=== PATIENT | female | born 1990 | race Caucasian/White ===

== ENCOUNTER → 2016-06-25 | Outpatient (CLI) | payer OTHER ==
[~2016-06-25] MED LIST: ACET50TA PO; COLA100C3 PO; IBUP80TA PO
[2016-06-25 19:22] LABS: BASO % 0.5 % (0.0-1.0); EOS # 0.2 K/mm3 (0.0-0.50); EOS % 1.9 % (0.0-3.0); LARGE UNSTAINED CELL # 0.1 K/mm3 (0.0-0.4); LARGE UNSTAINED CELL % 1.2 % (0.0-4.0); LYMPH # 1.4 K/mm3 (1.5-6.5); LYMPH % 15.7 % (24.0-44.0); MEAN CORPUSCULAR HEMOGLOBIN 29.1 pg (27.0-33.0); MEAN CORPUSCULAR HGB CONC 34.8 g/dl (32.0-36.5); MEAN CORPUSCULAR VOLUME 83.8 fl (80.0-96.0); MONO # 0.4 K/mm3 (0.0-0.8); MONO % 3.9 % (0.0-5.0); NEUTROPHILS # 6.9 K/mm3 (1.8-7.7); NEUTROPHILS % 76.7 % (36.0-66.0); PLATELET COUNT, AUTOMATED 357 k/mm3 (150-450); RED CELL DISTRIBUTION WIDTH 12.5 % (11.5-14.5); WHITE BLOOD COUNT 8.9 K/mm3 (4.0-10.0)
[2016-06-26 12:32] LABS: HBsAg Prenatal NEGATIVE (NEGATIVE)
== END ==
LOC: M SMT 14:19
PROVIDERS: ATTEND Specialist
DX: Z34.81 Encounter for supervision of other normal pregnancy, first trimester (principal)

== ENCOUNTER → 2016-09-22 | Outpatient (CLI) | payer OTHER ==
[~2016-09-22] MED LIST changes: -COLA100C3 PO; +COLA100C5 PO
--- NOTE | 2016-09-23 05:38 | REP ---
Clinical: Anatomical evaluation. Comparison: None . Findings: Examination demonstrates a single live intrauterine in breech presentation. motion is identified by technologist. Placenta is noted fundal and grade zero without evidence for placenta previa or abruption. Amniotic fluid volume is normal. Cervix measures 4.9 cm in length and appears closed. No evidence for nuchal cord. Gestational age by LMP 20 weeks 2 days with KEYON 02/07/2017 . Gestational age by current measurements 20 weeks 1 day with KEYON 02/08/2017 . FHR equals 149 beats per minute. BPD 4.6 cm 19 weeks 6 days HC 17.1 cm 19 weeks 5 days AC 15.2 20 weeks 3 days FL 3.3 20 weeks 3 days HL 3.2 cm 20 weeks 4 day HC/AC ratio 1.12 Estimated weight 348 grams ( 48th percentile). Anatomical assessment demonstrates normal structures including cranium, choroid plexus, cavum, cerebellum/posterior fossa, lungs, diaphragm, stomach, cord insertion/three-vessel cord, kidneys/bladder, and lower extremities. Limited evaluation of the facial features, heart/ventricular outflow tracts, spine and upper extremities. Impression: Single live intrauterine in breech presentation demonstrating appropriate interval growth. Anatomical limitations as described above may warrant reevaluation and follow-up. No gross abnormality identified. Signed by West Loredo MD 09/23/2016 05:30 A
== END ==
LOC: M RAD 07:37
PROVIDERS: ATTEND Obstetrics & Gynecology
DX: Z36 Encounter for antenatal screening of mother (principal); Z3A.20 20 weeks gestation of pregnancy

== ENCOUNTER → 2016-10-05 | Outpatient (CLI) | payer OTHER ==
--- NOTE | 2016-10-05 16:02 | REP ---
Obstetric ultrasound for anatomy: There is a single intrauterine gestation in a transverse lie with the head to the maternal left. There is movement and cardiac activity. heart rate is 163 beats per minute. The placenta is posterior. There is no placenta previa or abruptio. Placenta demonstrates grade 1 maturity. The amniotic fluid volume subjectively is normal. The cervix is 4.9 cm in length. Maternal adnexa and cul-de-sac are unremarkable. By the ultrasound today gestational age is 22 weeks 2 days with an KEYON of 02/06/2017. Gestational age by the first ultrasound is 22 weeks 0 days and by LMP 22 weeks 1 day. weight is 478 grams (1 pound, 0 ounces). This is the 46th percentile for 22 weeks 1 day. The following anatomic structures are identified and are unremarkable: Intracranial lateral ventricles, choroid plexus, cranium, cavum septum pellucidum, cerebellum, cisterna magna, facial profile, lungs, four-chamber heart, cardiac right and left ventricular outflow tracts, diaphragm, stomach, cord insertion, three-vessel cord, bladder and upper lower extremities. On the study today the kidneys could not be optimally demonstrated but were adequately demonstrated on the prior study of 09/22/2016 and was unremarkable. On the study today the spine cannot be optimally demonstrated but was adequately demonstrated on the prior study of 09/22/2016 and was unremarkable. On the prior study the facial profile, four-chamber view of the heart and cardiac right and left ventricular outflow tracts were not optimally demonstrated but are adequately demonstrated today and are unremarkable. No anomalies are identified. Signed by Ryan Lynn MD 10/05/2016 03:54 P
== END ==
LOC: M RAD 14:34
PROVIDERS: ATTEND Advanced Practice Midwife
DX: Z36 Encounter for antenatal screening of mother (principal); Z3A.22 22 weeks gestation of pregnancy

== ENCOUNTER → 2016-11-06 | Outpatient (CLI) | payer OTHER ==
[2016-11-06 18:39] LABS: MEAN CORPUSCULAR HEMOGLOBIN 28.8 pg (27.0-33.0); MEAN CORPUSCULAR HGB CONC 33.5 g/dl (32.0-36.5); RED CELL DISTRIBUTION WIDTH 13.4 % (11.5-14.5); WHITE BLOOD COUNT 8.6 K/mm3 (4.0-10.0)
== END ==
LOC: M SMT 13:21
PROVIDERS: ATTEND Advanced Practice Midwife
DX: Z34.82 Encounter for supervision of other normal pregnancy, second trimester (principal)

== ENCOUNTER → 2016-11-13 | Outpatient (CLI) | payer OTHER | LOC: M LAB 06:13 | PROVIDERS: ATTEND Advanced Practice Midwife | DX: R73.02 Impaired glucose tolerance (oral) (principal) ==

== ENCOUNTER 2017-01-16 19:36 | Outpatient (CLI) | payer OTHER ==
[~2017-01-16] VITALS: Ht 152.4 cm; Wt 96.8 kg
[2017-01-16] MEDS ORDERED: AMOX500C PO (20:12)
[2017-01-16] MEDS ORDERED: PRENTAB55 PO (20:12)
[2017-01-16 20:49] VITALS: BP 112/66
== END 2017-01-16 21:47 | disposition home or self-care (01) ==
LOC: M LDO 19:36
PROVIDERS: ATTEND Obstetrics & Gynecology
DX: O47.03 False labor before 37 completed weeks of gestation, third trimester (principal); Z3A.36 36 weeks gestation of pregnancy

== ENCOUNTER 2017-01-27 10:33 | Inpatient (IN) | payer OTHER ==
[2017-01-27] VITALS (30 sets, daily range): BP systolic 96–139; BP diastolic 51–71
[~2017-01-27 10:33] MED LIST changes: +AMOX500C PO; +PRENTAB55 PO
[2017-01-27] MEDS ORDERED: OXYTOCIN DRIP 30 UNITS in APPROPRIATE DILUENT 1 EA IV SCH (11:30)
[2017-01-27] MEDS: LR 1,000 ML IV SCH ×2 (12:32→14:58)
[2017-01-27 12:41] LABS: MEAN CORPUSCULAR HEMOGLOBIN 27.4 pg (27.0-33.0); MEAN CORPUSCULAR HGB CONC 33.5 g/dl (32.0-36.5); MEAN CORPUSCULAR VOLUME 81.7 fl (80.0-96.0); PLATELET COUNT, AUTOMATED 269 10^3/uL (150-450); RED CELL DISTRIBUTION WIDTH 13.1 % (11.5-14.5); WHITE BLOOD COUNT 8.8 10^3/uL (4.0-10.0)
[2017-01-27] MEDS ORDERED: FENTANYL 2MCG/ML ROPIVACAINE 0.2% IN 0.9% NACL 200ML IVBAG As Ordered ONE (12:51)
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
[2017-01-27] MEDS ORDERED: REFRIGERATOR IV KEYS XX PRN (14:30)
[2017-01-27] MEDS ORDERED: NALOXONE INJ 0.4 MG/1 ML VIAL (J2310) IV PRN (14:30)
[2017-01-27] MEDS ORDERED: EPIDURAL/PCA KEYS XX PRN (14:30)
[2017-01-27] MEDS ORDERED: diphenhydrAMINE INJ 50MG/ML VIAL (J1200) IV PRN (14:30)
[2017-01-27] MEDS ORDERED: LACTATED RINGER'S 1000 ML IV PRN (14:30)
[2017-01-27] MEDS ORDERED: ONDANSETRON 4MG/2ML VIAL (J2405) IV PRN ×2 (14:30→20:15)
[2017-01-27] MEDS ORDERED: EPIDURAL COMMENT XX SCH (14:30)
[2017-01-27] MEDS ORDERED: ePHEDrine SULFATE 25 MG/5 ML(5MG/ML) SYRINGE IV PRN (14:30)
[2017-01-27] MEDS ORDERED: FENTANYL/ROPIVACAINE/NACL BAG 200 ML EPIDURAL SCH (14:30)
[2017-01-27] MEDS ORDERED: DOCUSATE SODIUM 100 MG CAP PO PRN (20:15)
[2017-01-27] MEDS ORDERED: MEASLES,MUMPS,RUBELLA VACCINE INJ (MMR-II) (90707) SC SCH (20:15)
[2017-01-27] MEDS ORDERED: OXYTOCIN DRIP 30 UNITS in APPROPRIATE DILUENT 1 EA IV ONE (20:15)
[2017-01-27] MEDS ORDERED: METHYLERGONOVINE MALEATE 0.2 MG TAB PO PRN (20:15)
[2017-01-27] MEDS ORDERED: RHOGAM 300 MCG (1500 IU) INJ (J2790) IM SCH (20:15)
--- NOTE | 2017-01-27 21:00 | DN ---
DATE: 01/27/2017 PREDELIVERY DIAGNOSIS: 38+ weeks spontaneous rupture of membranes, labor. POSTDELIVERY DIAGNOSIS: Delivered. PROCEDURE: Spontaneous vaginal delivery. FRONT MAN: Dr. Salvador Sol ANESTHESIA: Epidural. ESTIMATED BLOOD LOSS: 300 mL. FINDINGS: 6 pounds 0 ounce female. scores 8 and 9. DELIVERY SUMMARY: After a short second stage, the patient spontaneously delivered a 6 pounds 0 ounce female under epidural anesthesia. There was no nuchal cord. The shoulders delivered with ease. The infant cried and was handed to the mother. The cord was doubly clamped and cut. Placenta delivered spontaneously and appeared to be intact. The patient received IV Pitocin immediately after delivery of the placenta. Very small first degree perineal laceration did not require repair. Sponge counts were correct.
[2017-01-27] MEDS: DIBUCAINE 1% OINTMENT 30GM TOP PRN (22:35)
[2017-01-28] MEDS: IBUPROFEN 800 MG TAB PO PRN ×3 (02:19→19:57)
[2017-01-28] MEDS: ACETAMINOPHEN 500 MG TAB PO PRN ×2 (04:17→12:24)
[2017-01-28] MEDS ORDERED: ePHEDrine SULFATE 25 MG/5 ML(5MG/ML) SYRINGE As Ordered ONE (04:24)
[2017-01-28 06:02] VITALS: BP 97/57
[2017-01-28] MEDS ORDERED: PRENATAL VITAMINS CHEWABLE TABLET PO SCH (09:00)
[2017-01-28 17:42] VITALS: BP 119/78
[2017-01-28] MEDS: DIBUCAINE 1% OINTMENT 30GM TOP PRN (23:00)
[2017-01-29] MEDS: IBUPROFEN 800 MG TAB PO PRN (04:21)
[2017-01-29 06:00] VITALS: BP 125/73
[2017-01-29] MEDS ORDERED: ACET50TA PO (08:27)
[2017-01-29] MEDS ORDERED: IBUP-1114 PO (08:27)
== END 2017-01-29 10:25 | disposition home or self-care (01) | DRG 560 ==
LOC: M LDI 10:33 → M OBS 21:52
PROVIDERS: ADMIT Specialist; ATTEND Specialist
PROC: 10E0XZZ Delivery of Products of Conception, External Approach (ICD-10-PCS; principal; 2017-01-27)
DX: O24.420 Gestational diabetes mellitus in childbirth, diet controlled (principal); Z37.0 Single live birth; Z3A.38 38 weeks gestation of pregnancy

== ENCOUNTER → 2017-10-05 | Outpatient (REF) | payer OTHER | LOC: M SFHCLERA 19:50 | DX: R30.0 Dysuria (principal) | CPT/HCPCS: 87086 ==

== ENCOUNTER → 2017-12-14 | Outpatient (REF) | payer OTHER | LOC: M SFHCLERA 10:50 | DX: R53.81 Other malaise (principal) ==

== ENCOUNTER → 2018-03-15 | Outpatient (REF) | payer OTHER ==
[~2018-03-15] MED LIST changes: -ACET50TA PO; +IBUP-1114 PO; +MAPA500T2 PO
== END ==
LOC: M LAB REF 17:53
PROVIDERS: ATTEND Specialist
DX: Z01.419 Encounter for gynecological examination (general) (routine) without abnormal findings (principal)

== ENCOUNTER → 2018-10-06 | Outpatient (REF) | payer OTHER | LOC: M SFHCLERA 12:40 | PROVIDERS: ATTEND Physician Assistant | DX: J02.9 Acute pharyngitis, unspecified (principal) ==

== ENCOUNTER → 2018-10-18 | Outpatient (CLI) | payer OTHER ==
--- NOTE | 2018-10-18 13:36 | REP ---
REASON: Cough. PRIORS: None. There is a patchy opacity in the right middle lobe. The pleural angles are sharp and the heart is not enlarged. The osseous structures are within normal limits. IMPRESSION: Right middle lobe pneumonia. Electronically Signed by Benjamín Ozuna DO 10/18/2018 03:33 P
== END ==
LOC: M LRY 11:57
PROVIDERS: ATTEND Nurse Practitioner Family
DX: J18.9 Pneumonia, unspecified organism (principal)

== ENCOUNTER → 2019-12-12 | Outpatient (REF) | payer BC ==
[2019-12-12 17:41] LABS: HEMOGLOBIN 12.9 g/dl (12.0-15.5); MEAN CORPUSCULAR HEMOGLOBIN 28.1 pg (27.0-33.0); MEAN CORPUSCULAR HGB CONC 33.1 g/dl (32.0-36.5); PLATELET COUNT, AUTOMATED 351 10^3/uL (150-450); RED BLOOD COUNT 4.59 10^6/uL (4.00-5.40); WHITE BLOOD COUNT 10.1 10^3/uL (4.0-10.0)
[2019-12-12 18:48] LABS: HEPATITIS C VIRUS ABY INDEX 0.1 INDEX (<0.8); HIV 1&2 SCREEN CENTAUR NEGATIVE (NEGATIVE)
== END ==
LOC: M PLALAB 15:14
PROVIDERS: ATTEND Specialist
DX: Z34.81 Encounter for supervision of other normal pregnancy, first trimester (principal); Z3A.00 Weeks of gestation of pregnancy not specified

== ENCOUNTER → 2020-01-11 | Outpatient (REF) | payer BC | LOC: M SFHCWAGY 17:02 | PROVIDERS: ATTEND Advanced Practice Midwife | DX: O09.211 Supervision of pregnancy with history of pre-term labor, first trimester (principal) ==

== ENCOUNTER → 2020-01-17 | Outpatient (REF) | payer BC | LOC: M PLALAB 12:43 | PROVIDERS: ATTEND Advanced Practice Midwife | DX: O99.211 Obesity complicating pregnancy, first trimester (principal); Z3A.00 Weeks of gestation of pregnancy not specified ==

== ENCOUNTER → 2020-02-08 | Outpatient (CLI) | payer BC | LOC: M LAB 06:12 | PROVIDERS: ATTEND Advanced Practice Midwife | DX: O99.810 Abnormal glucose complicating pregnancy (principal); Z3A.30 30 weeks gestation of pregnancy ==

== ENCOUNTER → 2020-02-28 | Outpatient (CLI) | payer BC ==
--- NOTE | 2020-02-28 15:35 | REP ---
INDICATION: ANATOMY. COMPARISON: None. TECHNIQUE: Transabdominal obstetric sonography. FINDINGS: Scanning through the gravid uterus demonstrates a viable single intrauterine gestation in cephalic lie. motion is observed and heart rate is recorded at 135 beats per minute. A anterior placenta is seen, grade 1, without evidence of placenta previa. Amniotic fluid is subjectively normal. Closed cervical length is measured at 4.2 cm transabdominally. No extrauterine abnormality is observed. Amniotic fluid is subjectively normal. There are echogenic foci in the cardiac ventricles likely chordee tendineae. The following structures are less than optimally seen due to position: Right and left kidney and spine. The following additional anatomic structures are identified and felt to be unremarkable: cranium intracranial anatomy, facial profile nose and lips, left and right ventricular outflow tract views, diaphragm, left-sided stomach, abdominal wall cord insertion, urinary bladder, upper and lower extremities, three-vessel cord. There is a 1.7 cm maternal ovarian cyst on the right. Biometry chart: BPD 4.4 cm, 19 weeks 2 days Head circumference 16.8 cm, 19 weeks 3 days Abdominal circumference 14.1 cm, 19 weeks 3 days Femur length 3.2 cm, 20 weeks 0 days Humeral length 3.0 cm, 20 weeks 0 days HC AC ratio normal 1.19 Cephalic index normal 0.72 Estimated weight 308 g, 0 lb 10 oz, 34th percentile for 19 weeks 6 days IMPRESSION: Viable single intrauterine gestation at 19 weeks 5 days by today's composite sonographic criteria. KEYON by today's sonography July 19, 2020. No complication identified. Echogenic foci are noted in the cardiac ventricles. Kidneys and urinary bladder less than optimally seen today due to position. <Electronically signed by Faustino Madrigal > 02/28/20 [id number]
== END ==
LOC: M WHC 13:34
PROVIDERS: ATTEND Advanced Practice Midwife
DX: Z36.9 Encounter for antenatal screening, unspecified (principal); Z3A.20 20 weeks gestation of pregnancy

== ENCOUNTER → 2020-04-03 | Outpatient (REF) | payer BC ==
[2020-04-03 18:25] LABS: APPEARANCE, URINE MANUAL TURBID (CLEAR); COLOR, URINE MANUAL AMBER (YELLOW)
[2020-04-03 18:26] LABS: GLUCOSE, URINE (UA) MANUAL NEGATIVE (NEGATIVE); KETONE, URINE MANUAL 1+ mg/dL (NEGATIVE); PROTEIN, URINE MANUAL NEGATIVE (NEGATIVE); SPECIFIC GRAVITY,URINE MANUAL 1.025 (1.002-1.035)
[2020-04-03 18:27] LABS: BILIRUBIN, URINE MANUAL NEGATIVE (NEGATIVE); BLOOD URINE MANUAL NEGATIVE (NEGATIVE); LEUKOCYTE ESTERASE, URINE MAN TRACE (NEGATIVE); NITRITE, URINE MANUAL NEGATIVE (NEGATIVE); UROBILINOGEN, URINE MANUAL NORMAL (NORMAL)
[2020-04-03 20:07] LABS: AMORPHOUS SEDIMENT, URINE LARGE AMOUNT (NEGATIVE); BACTERIA, URINE NONE SEEN; HYALINE CAST, URINE NONE SEEN /lpf (0-1); MUCUS, URINE SMALL AMOUNT (NEGATIVE); RBC, URINE NONE SEEN /hpf (0-3); SQUAMOUS EPITHELIAL CELL URINE LARGE AMOUNT /hpf (SMALL AMT); WBC, URINE 0-1 /hpf (0-3)
== END ==
LOC: M SFHCWAGY 17:33
PROVIDERS: ATTEND Advanced Practice Midwife
DX: O26.899 Other specified pregnancy related conditions, unspecified trimester (principal)

== ENCOUNTER → 2020-04-12 | Outpatient (REF) | payer BC ==
[2020-04-12 10:31] LABS: HEMATOCRIT 34.7 % (36.0-47.0); HEMOGLOBIN 11.1 g/dl (12.0-15.5); MEAN CORPUSCULAR HEMOGLOBIN 27.5 pg (27.0-33.0); MEAN CORPUSCULAR VOLUME 85.9 fl (80.0-96.0); PLATELET COUNT, AUTOMATED 274 10^3/uL (150-450); RED BLOOD COUNT 4.04 10^6/uL (4.00-5.40); WHITE BLOOD COUNT 10.2 10^3/uL (4.0-10.0)
== END ==
LOC: M PLALAB 08:09
PROVIDERS: ATTEND Obstetrics & Gynecology
DX: O99.212 Obesity complicating pregnancy, second trimester (principal); Z3A.00 Weeks of gestation of pregnancy not specified; E66.9 Obesity, unspecified

== ENCOUNTER → 2020-04-23 | Outpatient (CLI) | payer BC ==
--- NOTE | 2020-04-23 16:54 | REP ---
INDICATION: F/U ANATOMY. COMPARISON: 02/28/2020. TECHNIQUE: Real-time sonographic evaluation of the gravid uterus performed. FINDINGS: Estimated gestational age is27 weeks 5 days, EDC 07/18/2020. Today's measurements indicate appropriate growth. Presentation: Cephalic Placenta anterior, grade 1, without evidence of placenta previa. heart rate is recorded at 133 beats per minute. Amniotic fluid is subjectively normal. JOSE EDUARDO 12.7, normal range 9.4-22.7 Closed cervical length is measured at 3.5 cm. Biometry chart: BPD: 68 mm, 27 weeks 2 days, 42nd percentile. HC: 262 mm, 28 weeks 3 days, 66th percentile AC: 237 mm, 28 weeks 0 days, 57th percentile Femur length: 52 mm, 27 weeks 5 days, 52nd percentile HC to AC ratio: 1.10, normal range 1.0-1.18. Estimated weight: 1150g, 47th percentile. anatomy: The stomach, kidneys, bladder and three-vessel cord are visualized and are grossly unremarkable. Prior study did not demonstrate kidneys or spine. The spine is not well seen today due to position. IMPRESSION: Viable single intrauterine gestation as above. Spine still not well seen due to position. <Electronically signed by Ryan Franz > 04/23/20 [id number]
== END ==
LOC: M WHC 13:02
PROVIDERS: ATTEND Obstetrics & Gynecology
DX: O99.212 Obesity complicating pregnancy, second trimester (principal); E66.9 Obesity, unspecified; Z3A.27 27 weeks gestation of pregnancy

== ENCOUNTER → 2020-04-26 | Outpatient (CLI) | payer BC | LOC: M LAB 07:06 | PROVIDERS: ATTEND Obstetrics & Gynecology | DX: R73.02 Impaired glucose tolerance (oral) (principal) ==

== ENCOUNTER 2020-05-13 07:49 | Outpatient (CLI) | payer BC ==
[~2020-05-13] VITALS: Ht 152.4 cm; Wt 107.3 kg
[2020-05-13 08:02] VITALS: BP 107/64
--- NOTE | 2020-05-13 09:36 | REP ---
INDICATION: 30.4 weeks, bleeding, evaluate placenta COMPARISON: 04/23/2020 TECHNIQUE: Transabdominal obstetrical ultrasound with color Doppler evaluation. FINDINGS: Examination demonstrates a single live intrauterine in breech presentation. motion is identified by technologist. heart rate equals 140 BPM. Placenta is noted anterior and grade 1 without evidence for placenta previa or abruption. Amniotic fluid volume is normal. Cervix measures 4.3 cm in length and appears closed. No evidence for abruption. JOSE EDUARDO: 11.2 cm (8.9-23.6) Umbilical artery SD ratio: 2.81 (1.92-4.03). IMPRESSION: Anterior grade 1 placenta without evidence for placenta previa or abruption. Closed cervix measures 4.3 cm in length. <Electronically signed by West Loredo > 05/13/20 [id number]
[2020-05-13 09:48] LABS: HEMATOCRIT 33.6 % (36.0-47.0); MEAN CORPUSCULAR HEMOGLOBIN 27.6 pg (27.0-33.0); MEAN CORPUSCULAR HGB CONC 32.7 g/dl (32.0-36.5); MEAN CORPUSCULAR VOLUME 84.4 fl (80.0-96.0); PLATELET COUNT, AUTOMATED 263 10^3/uL (150-450); RED BLOOD COUNT 3.98 10^6/uL (4.00-5.40); WHITE BLOOD COUNT 10.1 10^3/uL (4.0-10.0)
[2020-05-13 10:10] LABS: INR 0.97; PARTIAL THROMBOPLASTIN TIME 23.5 SECONDS (24.2-38.5); PROTHROMBIN TIME 13.1 SECONDS (12.5-14.3)
--- NOTE | 2020-05-13 10:23 | IPNPDOC ---
Text Note Date of Service The patient was seen on 05/13/20. NOTE Subjective: Malina is a 29-year-old female who is a at 30.4 weeks station with an KEYON of 07/18/20 based on LMP and consistent with first trimester ultrasound. She initiated care in her first trimester with [facility]. Her has been complicated by morbid obesity and A1GDM. She presents this morning with complaints of vaginal bleeding that she noticed when she was going to bed this morning. She reports active movement. She denies leaking of clear fluid or contractions. Allergies: NKDA Current medications: none OBHx: ; -03/07/2016: at 36 weeks gestation, male, 5 lbs 7 oz; SIDS 6 weeks -01/27/2017: at 39 weeks gestation, female, 6 lbs, no complications OB problems: Obesity and A1GDM PMHx: obesity, GDM SHx: none FHx: cancer: colon, cervical and lung; diabetes Social Hx: former smoker, , no history of drug or alcohol us or abuse Objective: FHR: 130, moderate variability, positive accelerations, no decelerations [place]: every 3-6 minutes. Patient reports she is not having any contractions. VS and labs: see below General:Alert and oriented. Does not appear to be in distress. Respiratory: Regular rate and rhythm Abdomen: soft and not tender with palpation SSE: cervix appears thick and closed, posterior, moderate amount of blood seen in the vaginal canal. No active bleeding noted coming from the cervix. Ultrasound: see below Extremities: generalized edema in feet and legs. No pitting edema Assessment: IUP 30.4 weeks gestation, vaginal bleeding, not in labor Plan: Collaborated with Dr. Rodriguez. Reviewed with patient that all findings are negative but given that she had spontaneous vaginal bleeding that there is always a concern for an abruption even though it wasn't seen on the ultrasound. Patient instructed pelvic rest until spotting has stopped. Patient reports she now only has dark red spotting when she wipes. She has an appointment next week in our office and instructed to follow-up at that time. Patient taken out of work and given letter to be out for tonight. Reviewed access to care, kick count, labor signs, and danger signs (especially related to abruption symptoms) to call with. Patient verbalized understanding. Discharged to home. VS,Fishbone, I+O VS, Fishbone, I+O Laboratory Tests 05/13/20 09:26 Item Value Date Time Prothrombin Time 13.1 SECONDS 05/13/20925 Prothromb Time International Ratio 0.97 05/13/20925 Activated Partial Thromboplast Time 23.5 SECONDS L 05/13/20925 Fibrinogen 579 MG/DL H 05/13/20925 Vital Signs Date Time Temp Pulse Resp B/P (MAP) Pulse Ox O2 Delivery O2 Flow Rate FiO2 05/13/20 08:02 98.4 90 18 107/64 (78) NAME: MALINA BROOKS DATE OF : 1990 AGE: 29 SEX: F REPORT #: [id number] ROOM: [facility] TECHNOLOGIST: [facility] DOCTOR: NHAN HERRERA CNM Ordered for Date&Time: 05/13/20843 cc: [~ rep ct ivnm] Service Date&Time: 05/13/20927 EXAMINATION REQUESTED: Obs. Limited, JOSE EDUARDO US REASON FOR PATIENT VISIT: VAGINAL BLEEDING REASON FOR EXAM/COMMENT: 30.4 weeks, bleeding, evaluate placenta INDICATION: 30.4 weeks, bleeding, evaluate placenta COMPARISON: 04/23/2020 TECHNIQUE: Transabdominal obstetrical ultrasound with color Doppler evaluation. FINDINGS: Examination demonstrates a single live intrauterine in breech presentation. motion is identified by technologist. heart rate equals 140 BPM. Placenta is noted anterior and grade 1 without evidence for placenta previa or abruption. Amniotic fluid volume is normal. Cervix measures 4.3 cm in length and appears closed. No evidence for abruption. JOSE EDUARDO: 11.2 cm (8.9-23.6) Umbilical artery SD ratio: 2.81 (1.92-4.03). IMPRESSION: Anterior grade 1 placenta without evidence for placenta previa or abruption. Closed cervix measures 4.3 cm in length. <Electronically signed by West Loredo > 05/13/20931 NHAN HERRERA CNM May 13, 2020 10:23
== END 2020-05-13 10:45 | disposition home or self-care (01) ==
LOC: M LDO 07:49
PROVIDERS: ATTEND Advanced Practice Midwife
DX: O26.853 Spotting complicating pregnancy, third trimester (principal); Z3A.30 30 weeks gestation of pregnancy
CPT/HCPCS: 36415; 59025; 76815; 76820; 85027; 85384; 85610; 85730; G0378; G0463

== ENCOUNTER → 2020-05-23 | Outpatient (REF) | payer BC | LOC: M SFHCWAGY 13:42 | PROVIDERS: ATTEND Advanced Practice Midwife | DX: O99.213 Obesity complicating pregnancy, third trimester (principal) ==

== ENCOUNTER 2020-06-21 04:33 | Inpatient (IN) | payer BC ==
[2020-06-21] VITALS (43 sets, daily range): BP systolic 85–120; BP diastolic 49–67
[~2020-06-21] VITALS: Ht 152.4 cm; Wt 106.0 kg
[2020-06-21] MEDS ORDERED: ONDANSETRON 4MG/2ML VIAL IV ONE (05:30)
[2020-06-21] MEDS ORDERED: LR 1,000 ML IV ONE (05:30)
[2020-06-21] MEDS ORDERED: LR 1,000 ML IV SCH (09:20)
--- NOTE | 2020-06-21 09:23 | IPNPDOC ---
Text Note Date of Service The patient was seen on 06/21/20. NOTE 29yo KEYON 07/18/2020. Presents at 36w1d with complaints of abrupt onset lower abdominal pain and vomiting. Denies perception of regular contractions, LOF, bleeding. Reports BHC and good movement. NAD VSS, afebrile , normotensive FH 135, Cat I UC mild, Q 3-5 minutes SVE 2/80/-2, posterior Hydrate, observe for labor progress VS,Fishbone, I+O VS, Fishbone, I+O Vital Signs Date Time Temp Pulse Resp B/P (MAP) Pulse Ox O2 Delivery O2 Flow Rate FiO2 06/21/20 08:19 98.7 78 20 116/62 (80) 06/21/20 04:55 99 Room Air Gisel Rogers CNM Jun 21, 2020 09:23
[2020-06-21 10:32] LABS: APPEARANCE, URINE CLEAR (CLEAR); BACTERIA, URINE AUTO NEGATIVE (NEGATIVE); BILIRUBIN, URINE AUTO NEGATIVE (NEGATIVE); BLOOD, URINE BLOOD 1+ (NEGATIVE); COLOR, URINE YELLOW (YELLOW); GLUCOSE, URINE (UA) AUTO NEGATIVE (NEGATIVE); KETONE, URINE AUTO 2+ mg/dL (NEGATIVE); LEUKOCYTE ESTERASE, URINE AUTO NEGATIVE (NEGATIVE); MUCUS, URINE SMALL (NEGATIVE); NITRITE, URINE AUTO NEGATIVE (NEGATIVE); PROTEIN, URINE AUTO NEGATIVE (NEGATIVE); RBC, URINE AUTO 0 /HPF (0-3); SPECIFIC GRAVITY URINE AUTO 1.027 (1.002-1.035); SQUAMOUS EPITHELIAL CELL UR AU 2 /HPF (0-6); UROBILINOGEN, URINE AUTO 0.2 mg/dL (0.0-2.0); WBC, URINE AUTO 1 /HPF (0-3)
[2020-06-21] MEDS ORDERED: PENICILLIN G POTASSIUM IV 5 MU in D5W MINI-BAG PLUS 100 ML IV STA (10:33)
[2020-06-21] MEDS ORDERED: LACTATED RINGER'S 1000 ML IV STA (10:33)
[2020-06-21] MEDS ORDERED: LIDOCAINE 1% MDV 20ML VIAL INFIL PRN (10:35)
[2020-06-21] MEDS ORDERED: OXYTOCIN DRIP 30 UNITS in IV 1 EA IV SCH ×2 (10:35→19:40)
[2020-06-21] MEDS ORDERED: OXYTOCIN DRIP 30 UNITS in IV 1 EA IV PRN (10:35)
--- NOTE | 2020-06-21 11:01 | HPEPDOC ---
Obstetrical History & Physical General Date of Admission 06/21/2020 History of Present Illness Chief Complaint: Contractions, pre-term, LOF, pre-term Information Provided By: Patient Age: 29 : 3 Term: 1 Pre-term: 1 Abortions: 0 Livin Dating Final EDC by: LMP EGA at Admission: 36 (+1) Antepartum Course Admission Weight (lbs.): 234 Past Medical History Past Obstetrical History #1: Past Obstetrical History: Primgravida (2017) Type of Delivery: Spontaneous Vaginal Del. (36 wks) Sex of : Male (5#7) Complications: Yes ( @ 6wks) Past Obstetrical History #2: Past Obstetrical History: Multigravida (2017) Type of Delivery: Spontaneous Vaginal Del. 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 BREAST: . ABDOMEN: Gravid and non-tender to touch. FETUS: Is vertex (VTX) by sterile vaginal examination (SVE), fetus is vertex (VTX) by Von. Vertex by bedside sono. EFW 6# HEART RATE: Regular rate and rhythm. LUNGS: Clear to auscultation (CTA). EXTREMITIES: No edema. No clonus. Deep tendon reflexes (DTRs) + 2. Vital Signs/I&O Vital Signs Date Time Temp Pulse Resp B/P (MAP) Pulse Ox O2 Delivery O2 Flow Rate FiO2 06/21/20 08:19 98.7 78 20 116/62 (80) 06/21/20 04:55 99 Room Air Laboratory Data 24H LABS Laboratory Tests 2 06/21/20 09:59: Urine Color YELLOW, Urine Appearance CLEAR, Urine pH 5.0, Urine Specific [place] 1.027, Urine Protein NEGATIVE, Urine Glucose (Auto)(UA) NEGATIVE, Urine Ketones (Auto) 2+H, Urine Blood 1+H, Urine Nitrite NEGATIVE, Urine Bilirubin NEGATIVE, Urine Urobilinogen 0.2, Urine Leukocyte Esterase (Auto) NEGATIVE, Urine WBC (Auto) 1, Urine RBC (Auto) 0, Urine Hyaline Casts (Auto) 0, Urine Bacteria (Auto) NEGATIVE, Urine Squamous Epithelial Cells 2, Urine Mucus (Auto) SMALL, Urine Sperm (Auto) Microbiology Microbiology 06/21/20 Urine Culture, Received Pending 06/21/20 Group B Streptococcus Screen (ELLIS), Received Pending Pertinent Laboratoy Data Blood Type: B+ RBC Antibody Screen: Negative HIV: Negative Hepatitis B: Negative Hepatitis C: Negative Rapid Plasma Reagin: Nonreactive Rubella: Immune Chlamydia/Gonorrhea: Negative Group B Streptococcus: Unknown Glucose Tolerance Test: 162 (82/127/141/84repeat @ 26w 158 with 3h 80/180/175/116) Anatomy Ultrasound Ultrasound Date: Feb 28, 2020 Placenta Location: Anterior Normal Anatomy: Yes Placenta Previa: No Estimated Weight (grams): 308 (34%) Other Ultrasounds 12/12/2019 8w5d ED 07/18/2020 04/23/2020 F/u anatomy EFW 1150gm, 47% 05/13/2020 bleeding @ 30wks No previa Steroid Therapy Steroid Therapy: No Vaginal Examination Dilation: 2cm Effacement: 80% Station: -2 Cervical Consistency: Medium Cervical Position: Posterior Presentation: Cephalic presentation (confirmed by bedside sono) Assessment Heart Rate (FHR): 145 Variability: Moderate Accelerations: Positive Decelerations: None Tocometer Contractions: Yes Frequency: irregular Strength: palpated as mild Assessment/Plan Assessment Malina is a 29-year-old (G)3 para (P)1-1-0-1 at 36+1 weeks by 8-week ultrasound. Presents to Labor and Delivery (L&D) with reports of contractions followed by spontaneous rupture of membranes. Denies bleeding. Fetus is active. complicated by A1GDM, well controlled. Plan Admit and orient. Advertising Sales Manager and consent. Diet: clear liquids Group B Streptococcus (GBS) unknown. Culture obtained today. Labs and intravenous (IV) per unit protocol. Counseled on Pitocin and induction of labor (IOL). Lactated Ringers (LR): Bolus 500 mL, then at 125 mL/hr. Plans epidural Anticipate normal spontaneous delivery (). C-S as appropriate. Gisel Rogers CNM Jun 21, 2020 10:45
[2020-06-21 11:16] LABS: HEMATOCRIT 36.1 % (36.0-47.0); HEMOGLOBIN 11.8 g/dl (12.0-15.5); MEAN CORPUSCULAR HEMOGLOBIN 27.3 pg (27.0-33.0); MEAN CORPUSCULAR HGB CONC 32.7 g/dl (32.0-36.5); MEAN CORPUSCULAR VOLUME 83.6 fl (80.0-96.0); PLATELET COUNT, AUTOMATED 302 10^3/uL (150-450); RED BLOOD COUNT 4.32 10^6/uL (4.00-5.40); WHITE BLOOD COUNT 15.6 10^3/uL (4.0-10.0)
[2020-06-21] MEDS: LR 1,000 ML IV SCH ×2 (13:34→18:40)
[2020-06-21] MEDS ORDERED: PENICILLIN G POTASSIUM IV 2.5 MU in IV 1 EA IV SCH (15:00)
[2020-06-21] MEDS ORDERED: FENTANYL 2MCG/ML ROPIVACAINE 0.2% IN 0.9% NACL 100ML IVBAG As Ordered ONE (15:17)
[2020-06-21] MEDS ORDERED: ONDANSETRON 4MG/2ML VIAL IV PRN (15:48)
[2020-06-21] MEDS ORDERED: diphenhydrAMINE 50MG/ML VIAL (J1200) IV PRN (15:48)
[2020-06-21] MEDS ORDERED: NALOXONE INJ 0.4MG/1ML VIAL (J2310 PER 1MG) IV PRN (15:48)
[2020-06-21] MEDS ORDERED: EPIDURAL/PCA KEYS XX PRN (15:48)
[2020-06-21] MEDS ORDERED: ePHEDrine SULFATE 25 MG/5 ML(5MG/ML) SYRINGE IV PRN (15:48)
[2020-06-21] MEDS ORDERED: EPIDURAL COMMENT XX SCH (15:48)
[2020-06-21] MEDS ORDERED: REFRIGERATOR IV KEYS XX PRN (15:48)
[2020-06-21] MEDS ORDERED: LACTATED RINGER'S 1000 ML IV PRN (15:48)
[2020-06-21] MEDS ORDERED: FENTANYL/ROPIVACAINE/NACL BAG 100 ML EPIDURAL SCH (15:48)
[2020-06-21] MEDS ORDERED: RHOGAM 300 MCG (1500 IU) INJ (J2790) IM SCH (19:40)
[2020-06-21] MEDS ORDERED: MEASLES,MUMPS,RUBELLA VACCINE INJ (MMR-II) (90707) SC SCH (19:40)
[2020-06-21] MEDS ORDERED: DOCUSATE SODIUM 100MG CAPSULE PO PRN (19:40)
[2020-06-21] MEDS ORDERED: METHYLERGONOVINE MALEATE 0.2 MG TAB PO PRN (19:40)
[2020-06-21] MEDS ORDERED: ANUSOL HC CREAM 30GM TOP PRN (19:40)
[2020-06-21] MEDS ORDERED: IBUPROFEN 600MG TAB PO PRN (19:40)
[2020-06-21] MEDS ORDERED: ACETAMINOPHEN 500 MG TAB PO PRN (19:40)
[2020-06-21] MEDS ORDERED: DIBUCAINE 1% OINTMENT 30GM TOP PRN (19:40)
[2020-06-21] MEDS ORDERED: MOM 30ML SUSPENSION UDC PO PRN (19:40)
--- NOTE | 2020-06-21 19:49 | DNPDOC ---
[facility] Delivery Note Delivery Note DATE OF DELIVERY: 06/21/2020 PREDELIVERY DIAGNOSIS: 36+1/7 weeks' gestation and labor. POST DELIVERY DIAGNOSIS: Delivered. PROCEDURE: Spontaneous vaginal delivery. PROVIDER: Gisel Rogers CNM ANESTHESIA:Epidural. ESTIMATED BLOOD LOSS: 150 mL. FINDINGS: 5 pound 14 ounce, 2660gm female infant, Score 8/8, no nuchal cord. DELIVERY SUMMARY: Patient is a 29-year-old 3 now para 1-2-0-2 who was admitted to labor and delivery for spontaneous rupture of membranes, clear fluid. She received pitocin augmentation and adequate prophylaxis for unknown GBS status. She utilized an epidural for labor coping. Fully dilated 1905. Viable female delivered GADIEL @ 1922, shoulders delivered with ease. Spontaneous respirations, transitioned on maternal abdomen. Cord doubly clamped and cut once pulsations ceased. Apgars 8/8. Placenta lyle, intact with 3 v cord @ 1928. Marginal cord insertion noted. Fundus firmed with massage and premixed IV pitocin bolus. EBL 150ml. Cervix, vagina and perineum intact. Sponge sharp and instrument count correct. Parents are naming their daughter Ebony. Gisel Rgoers CNM Jun 21, 2020 19:49
[2020-06-22 06:00] VITALS: BP 98/57
--- NOTE | 2020-06-22 06:54 | IPNPDOC ---
Text Note Date of Service The patient was seen on 06/22/20. NOTE PP #1 Feels well. Adequate pain management. Voiding VSS, afebrile, normotensive Fundus firm, NT, down 1 FB Lochia rubra light without odor Perineum intact PP #1 Routine care, Anticipate D/C in am VS,Fishbone, I+O VS, Fishbone, I+O Vital Signs Date Time Temp Pulse Resp B/P (MAP) Pulse Ox O2 Delivery O2 Flow Rate FiO2 06/22/20 06:00 97.7 63 18 98/57 (71) 06/21/20 04:55 99 Room Air I&O- Last 24 Hours up to 6 AM 06/22/20 06:00 Output Total 450 ml Balance -450 ml Gisel Rogers CNM Jun 22, 2020 06:54
[2020-06-22] MEDS: PRENATAL VITAMINS CHEWABLE TABLET PO SCH (08:24)
[2020-06-22] MEDS: IBUPROFEN 800 MG TAB PO PRN (13:53)
[2020-06-22 17:52] VITALS: BP 113/61
[2020-06-22] MEDS: ACETAMINOPHEN TAB 650MG DOSE (2X325MG) PO PRN (20:38)
[2020-06-23] MEDS: IBUPROFEN 800 MG TAB PO PRN (00:05)
[2020-06-23] MEDS: ACETAMINOPHEN TAB 650MG DOSE (2X325MG) PO PRN (05:40)
[2020-06-23 05:56] VITALS: BP 113/70
[2020-06-23] MEDS ORDERED: IBUP80TA PO (07:08)
[2020-06-23] MEDS ORDERED: ACET-683 PO (07:08)
[2020-06-23] MEDS: PRENATAL VITAMINS CHEWABLE TABLET PO SCH (09:56)
== END 2020-06-23 14:10 | disposition home or self-care (01) | DRG 560 ==
LOC: M LDO 04:33 → M LDI 11:05 → M OBS 22:01
PROVIDERS: ADMIT Advanced Practice Midwife; ATTEND Advanced Practice Midwife
PROC: 10E0XZZ Delivery of Products of Conception, External Approach (ICD-10-PCS; principal; 2020-06-21)
DX: O60.14X0 Preterm labor third trimester with preterm delivery third trimester, not applicable or unspecified (principal); Z37.0 Single live birth; Z3A.36 36 weeks gestation of pregnancy; O24.419 Gestational diabetes mellitus in pregnancy, unspecified control

== ENCOUNTER → 2020-08-16 | Outpatient (CLI) | payer BC ==
[~2020-08-16] MED LIST changes: +ACET-683 PO
== END ==
LOC: M LAB 07:27
PROVIDERS: ATTEND Advanced Practice Midwife
DX: O24.419 Gestational diabetes mellitus in pregnancy, unspecified control (principal); Z3A.00 Weeks of gestation of pregnancy not specified

== ENCOUNTER → 2020-09-13 | Outpatient (REF) | payer BC | LOC: M LAB REF 17:00 | PROVIDERS: ATTEND Nurse Practitioner Family | DX: J02.9 Acute pharyngitis, unspecified (principal) ==

== ENCOUNTER 2021-09-18 00:19 | Emergency (ER) | payer BC ==
[~2021-09-18] VITALS: Ht 144.8 cm; Wt 104.5 kg
[2021-09-18 00:19] VITALS: BP 130/82
== END 2021-09-18 00:50 | disposition left against medical advice (07) ==
LOC: M ED 00:19
DX: Z53.21 Procedure and treatment not carried out due to patient leaving prior to being seen by health care provider (principal)

== ENCOUNTER → 2021-11-07 | Outpatient (REF) | payer BC | LOC: M LAB REF 11:48 | PROVIDERS: ATTEND Physician Assistant | DX: R30.0 Dysuria (principal) ==

== ENCOUNTER → 2022-02-11 | Outpatient (REF) | payer BC | LOC: M SFHCWAGY 10:00 | PROVIDERS: ATTEND Nurse Practitioner Family | DX: Z12.4 Encounter for screening for malignant neoplasm of cervix (principal); R87.615 Unsatisfactory cytologic smear of cervix | CPT/HCPCS: 87624; G0123 ==

== ENCOUNTER → 2023-02-19 | Outpatient (REF) | payer BC | LOC: M SFHCWAGY 17:12 | PROVIDERS: ATTEND Nurse Practitioner Family | DX: Z12.4 Encounter for screening for malignant neoplasm of cervix (principal) | CPT/HCPCS: 87624; G0123 ==

== ENCOUNTER → 2024-05-04 | Outpatient (CLI) | payer BC ==
[2024-05-04 15:35] LABS: HEMATOCRIT 34.4 % (36.0-47.0); HEMOGLOBIN 11.5 g/dl (12.0-15.5); MEAN CORPUSCULAR HEMOGLOBIN 28.3 pg (27.0-33.0); MEAN CORPUSCULAR HGB CONC 33.4 g/dl (32.0-36.5); MEAN CORPUSCULAR VOLUME 84.7 fl (80.0-96.0); PLATELET COUNT, AUTOMATED 303 10^3/uL (150-450); RED BLOOD COUNT 4.06 10^6/uL (4.00-5.40); WHITE BLOOD COUNT 8.4 10^3/uL (4.0-10.0)
[2024-05-04 16:14] LABS: HIV 1&2 SCREEN NEGATIVE (NEGATIVE)
[2024-05-04 16:22] LABS: HEPATITIS C VIRUS ABY INDEX 0.04 INDEX (<0.8)
== END ==
LOC: M PLALAB 12:37
PROVIDERS: ATTEND Specialist
DX: Z34.80 Encounter for supervision of other normal pregnancy, unspecified trimester (principal)

== ENCOUNTER → 2024-05-11 | Outpatient (REF) | payer BC ==
[2024-05-11 12:05] LABS: TOTAL PROTEIN,RANDOM URINE 17.6 MG/DL (0.0-14.0)
[2024-05-11 12:10] LABS: CREATININE,RANDOM URINE 240.7 MG/DL
[2024-05-13 13:09] LABS: Trichomonas vaginalis (AMP) NOT DETECTED (NEGATIVE)
[2024-05-13 13:33] LABS: GC DNA AMPLIFICATION NEGATIVE (NEGATIVE)
== END ==
LOC: M PLALAB 07:41
PROVIDERS: ATTEND Specialist
DX: O99.210 Obesity complicating pregnancy, unspecified trimester (principal); E66.01 Morbid (severe) obesity due to excess calories; Z3A.00 Weeks of gestation of pregnancy not specified

== ENCOUNTER → 2024-05-11 | Outpatient (CLI) | payer BC ==
[2024-05-11 15:15] LABS: HEMATOCRIT 32.7 % (36.0-47.0); HEMOGLOBIN 10.9 g/dl (12.0-15.5); MEAN CORPUSCULAR HEMOGLOBIN 28.6 pg (27.0-33.0); MEAN CORPUSCULAR HGB CONC 33.3 g/dl (32.0-36.5); MEAN CORPUSCULAR VOLUME 85.8 fl (80.0-96.0); PLATELET COUNT, AUTOMATED 277 10^3/uL (150-450); RED BLOOD COUNT 3.81 10^6/uL (4.00-5.40); WHITE BLOOD COUNT 9.7 10^3/uL (4.0-10.0)
[2024-05-11 15:38] LABS: URIC ACID 4.1 MG/DL (3.1-7.8)
[2024-05-11 15:40] LABS: ALT/SGPT 18 U/L (7.0-40); AST/SGOT 9 U/L (<34); BILIRUBIN,TOTAL 0.4 MG/DL (0.3-1.2); CREATININE FOR GFR 0.52 MG/DL (0.55-1.30); GLOMERULAR FILTRATION RATE > 60.0 (>60); GLUCOSE CHALLENGE TEST 1 HOUR 173 MG/DL (LESS THAN 140); LDH LACTATE DEHYDROGENASE 142 U/L (120-246)
== END ==
LOC: M PLAIMG 08:23
PROVIDERS: ATTEND Nurse Practitioner Family
DX: E66.01 Morbid (severe) obesity due to excess calories (principal); Z86.32 Personal history of gestational diabetes

== ENCOUNTER → 2024-05-25 | Outpatient (CLI) | payer BC | LOC: M LAB 07:37 | PROVIDERS: ATTEND Nurse Practitioner Family | DX: R73.02 Impaired glucose tolerance (oral) (principal) ==

== ENCOUNTER → 2024-05-31 | Outpatient (CLI) | payer BC | LOC: M RAD 12:34 | PROVIDERS: ATTEND Nurse Practitioner Family | DX: Z34.80 Encounter for supervision of other normal pregnancy, unspecified trimester (principal) ==

== ENCOUNTER → 2024-07-07 | Outpatient (CLI) | payer BC | LOC: M WHC 08:56 | PROVIDERS: ATTEND Advanced Practice Midwife | DX: O24.419 Gestational diabetes mellitus in pregnancy, unspecified control (principal); Z3A.24 24 weeks gestation of pregnancy; O44.42 Low lying placenta NOS or without hemorrhage, second trimester ==

== ENCOUNTER → 2024-07-14 | Outpatient (CLI) | payer BC ==
[2024-07-14 16:36] LABS: HEMATOCRIT 34.6 % (36.0-47.0); HEMOGLOBIN 11.3 g/dl (12.0-15.5); MEAN CORPUSCULAR HEMOGLOBIN 28.3 pg (27.0-33.0); MEAN CORPUSCULAR HGB CONC 32.7 g/dl (32.0-36.5); MEAN CORPUSCULAR VOLUME 86.5 fl (80.0-96.0); PLATELET COUNT, AUTOMATED 313 10^3/uL (150-450); WHITE BLOOD COUNT 8.2 10^3/uL (4.0-10.0)
[2024-07-14 17:32] LABS: HIV 1&2 SCREEN NEGATIVE (NEGATIVE)
[2024-07-14 17:39] LABS: HEPATITIS C VIRUS ABY INDEX 0.03 INDEX (<0.8)
[2024-07-14 17:40] LABS: Trichomonas vaginalis (AMP) NOT DETECTED (NEGATIVE)
[2024-07-14 18:04] LABS: GC DNA AMPLIFICATION NEGATIVE (NEGATIVE)
== END ==
LOC: M PLALAB 14:24
PROVIDERS: ATTEND Advanced Practice Midwife
DX: Z34.82 Encounter for supervision of other normal pregnancy, second trimester (principal)

== ENCOUNTER 2024-09-12 03:07 | Outpatient (CLI) | payer BC ==
[~2024-09-12] VITALS: Ht 152.4 cm; Wt 102.0 kg
[2024-09-12 03:31] VITALS: BP 98/50
[2024-09-12] MEDS: ONDANSETRON 4MG 2ML VIAL IV PRN (04:13)
[2024-09-12] MEDS: LR 1,000 ML IV ONE (04:13)
[2024-09-12 04:36] LABS: PLATELET COUNT, AUTOMATED 284 10^3/uL (150-450)
[2024-09-12 04:46] LABS: APPEARANCE, URINE CLOUDY (CLEAR); BACTERIA, URINE AUTO NEGATIVE (NEGATIVE); BILIRUBIN, URINE AUTO NEGATIVE (NEGATIVE); BLOOD, URINE BLOOD NEGATIVE (NEGATIVE); CALCIUM OXALATE CRYSTALS SMALL; GLUCOSE, URINE (UA) AUTO NEGATIVE (NEGATIVE); KETONE, URINE AUTO 2+ mg/dL (NEGATIVE); LEUKOCYTE ESTERASE, URINE AUTO TRACE (NEGATIVE); MUCUS, URINE SMALL (NEGATIVE); NITRITE, URINE AUTO NEGATIVE (NEGATIVE); PROTEIN, URINE AUTO 1+ mg/dL (NEGATIVE); RBC, URINE AUTO 4 /HPF (0-3); SPECIFIC GRAVITY URINE AUTO 1.030 (1.002-1.035); SQUAMOUS EPITHELIAL CELL UR AU 10 /HPF (0-6); UROBILINOGEN, URINE AUTO 2.0 mg/dL (0.0-2.0); WBC, URINE AUTO 8 /HPF (0-3)
[2024-09-12 04:55] LABS: ALT/SGPT 24 U/L (7.0-40); AST/SGOT 24 U/L (<34); CALCIUM LEVEL 9.1 MG/DL (8.5-10.1); CARBON DIOXIDE LEVEL 22 MMOL/L (20-31); CHLORIDE LEVEL 104 MMOL/L (98-107); CREATININE FOR GFR 0.59 MG/DL (0.55-1.30); GLOMERULAR FILTRATION RATE > 90.0 (>60); POTASSIUM SERUM 4.1 MMOL/L (3.5-5.1); SODIUM LEVEL 142 MMOL/L (136-145)
== END 2024-09-12 07:00 | disposition home or self-care (01) ==
LOC: M LDO 03:07
PROVIDERS: ATTEND Advanced Practice Midwife
DX: O21.8 Other vomiting complicating pregnancy (principal); O24.419 Gestational diabetes mellitus in pregnancy, unspecified control; O99.213 Obesity complicating pregnancy, third trimester; E66.01 Morbid (severe) obesity due to excess calories; Z3A.33 33 weeks gestation of pregnancy
CPT/HCPCS: 59025; 80053; 81001; 85027; 87086; 96374; 96375; G0463; J2405; J2765

== ENCOUNTER → 2024-09-20 | Outpatient (CLI) | payer BC | LOC: M WHC 11:21 | PROVIDERS: ATTEND Obstetrics & Gynecology | DX: O24.419 Gestational diabetes mellitus in pregnancy, unspecified control (principal); Z3A.35 35 weeks gestation of pregnancy ==